=== PATIENT | male | born 1995 | race American Indian/Alaskan Native ===

== ENCOUNTER 2017-12-18 01:22 | Emergency (ER) | payer MEDICAID ==
[2017-12-18] MEDS ORDERED: Tetanus/Diphtheria Toxoids 0.5 ml Syringe IM ONE ×2 (01:50→02:01)
[2017-12-18] MEDS ORDERED: Bacitracin 500 Units/gm Oint Foilpak UD ONE (03:24)
[2017-12-18 03:41] VITALS: BP 103/64; PULSE 63; RESP 17; TEMP 98.4; O2SAT 97
--- NOTE | 2017-12-18 03:53 | C.PDOC ---
Addendum entered and electronically signed by Melvi Dai PA-C 05:28: Addendum Addendum: 12/18/17 05:28 Normal sensation, normal strength, good cap refill to [facility] Original Note: History Of Present Illness Pt presents to ED with laceration of right hand after he punched the rearview mirror of his car. Pt denies numbness, weakness of right hand. LAst tetanus is unknown Time Seen by Provider: 12/18/17 01:35 Chief Complaint (Nursing): Abnormal Skin Integrity History Per: Patient History/Exam Limitations: no limitations Past Medical History Vital Signs: Last Vital Signs Temp 98.4 F 12/18/17 03:40 Pulse 63 12/18/17 03:40 Resp 17 12/18/17 03:40 BP 103/64 12/18/17 03:40 Pulse Ox 97 12/18/17 03:59 - Medical History PMH: No Chronic Diseases Family History: States: Unknown Family Hx - Social History Hx Alcohol Use: Yes Hx Substance Use: Yes - Immunization History Hx Tetanus Toxoid Vaccination: No Hx Influenza Vaccination: Yes Hx Pneumococcal Vaccination: No Review Of Systems Musculoskeletal: Positive for: Hand Pain, Other (laceration, right hand) Neurological: Negative for: Weakness, Numbness Physical Exam - Physical Exam Appears: Well, Non-toxic, No Acute Distress Head: Atraumatic Eye(s): bilateral: Normal Inspection, PERRL Extremity: Normal ROM (to rifgt hand - limited to right middle finger), Capillary Refill (< 2 sec), No Deformity, No Other (3.5x2 cm laceration to right 3rd mcp extedning to proximal 3rd finger , 1.5 cm lac to proximal right 4th, no foreign body palopated or visualized) Extremity: Bilateral: Normal Color And Temperature Gait: Steady ED Course And Treatment O2 Sat by Pulse Oximetry: 97 Pulse Ox Interpretation: Normal - Other Rad Rt hand X-Ray: Interpreted by Me, Viewed By Me Interpretation: No fx or foreign body Progress Note: Pt tolerated well. tetanus ordered. Pt with partial tendon laceation of right 3rd finger advised strongly to follow up with hand specialist in 1-2 days for further evaluation Laceration - Laceration Repair Rt hand pain Wound Length (In cm): 3.5x 2 Description Of Wound: Stellate Anesthesia: Lidocaine 1%, With Epi Wound Examination: Irrigated With Saline (partial tendon laceration over 3rd MCP ), No FB With Wound Exploration Wound Closure: Suture (7) Suture Technique And Material Used: Running, Interrupted, Nylon (3.0) Wound Complexity: Intermediate 4th finger Wound Length (In cm): 1.5 Description Of Wound: Linear Wound Cleansed With: Betadine, Sterile Saline Anesthesia: Lidocaine 1%, With Epi Wound Examination: Irrigated With Saline, No FB With Wound Exploration, No Tendon Injury With Wound Exploration Wound Closure: Suture Suture Technique And Material Used: Interrupted (x2 sutures), Nylon (3.0) Wound Complexity: Simple Disposition Counseled Patient/Family Regarding: Diagnosis, Need For Followup, Rx Given - Disposition Referrals: Wolf Castanon MD [Staff Provider] - Disposition: HOME/ ROUTINE Disposition Time: 03:53 Condition: STABLE Additional Instructions: Keep hand clean and dry Follow up with hand specialist Take meds as directed Return to ER if severe pain, swelling , or worse Prescriptions: Amoxicillin/Clavulanate [Augmentin 875 MG-125 MG] 1 tab PO BID #14 tab Ibuprofen [Motrin] 600 mg PO Q6H #20 tab Instructions: Laceration Repair With Stitches (DC) Forms: Vungle (Hebrew) - Clinical Impression Clinical Impression: Finger laceration involving tendon
--- NOTE | 2017-12-18 08:18 | RAD ---
PROCEDURE: Right Hand Radiographs. HISTORY: trauma, pain and swelling COMPARISON: None. FINDINGS: BONES: Normal. No fracture. JOINTS: Normal. No osteoarthritic changes. SOFT TISSUES: Normal. OTHER FINDINGS: None. IMPRESSION: Normal right hand radiographs.
== END 2017-12-18 04:06 | disposition home or self-care (01) ==
LOC: C.ER 01:22
DX: S61.411A Laceration without foreign body of right hand, initial encounter (principal); S61.214A Laceration without foreign body of right ring finger without damage to nail, initial encounter; W22.8XXA Striking against or struck by other objects, initial encounter; Z23 Encounter for immunization